=== PATIENT | female | born 1975 | race Hispanic/Latino ===

== ENCOUNTER 2018-01-25 13:29 | Emergency (ER) | payer MEDICAID ==
[~2018-01-25 13:29] MED LIST: ASPI-1005 PO; ATOR40TA69 PO; FERR324T4 PO; METF750T2 PO
== END 2018-01-25 14:28 | disposition home or self-care (01) ==
LOC: EDH 13:29
DX: T78.49XA Other allergy, initial encounter (principal); R51 Headache; R05 Cough; R09.81 Nasal congestion; E11.9 Type 2 diabetes mellitus without complications; I10 Essential (primary) hypertension; Z79.4 Long term (current) use of insulin; Z89.519 Acquired absence of unspecified leg below knee; X58.XXXA Exposure to other specified factors, initial encounter